=== PATIENT | female | born 1960 | race African-American/Black ===

== ENCOUNTER 2018-09-16 08:12 | Emergency (ER) | payer BC ==
[~2018-09-16] VITALS: Ht 162.6 cm; Wt 70.0 kg
[2018-09-16] MEDS ORDERED: DIAZEPAM 5 MG TABLET PO ONE (09:15)
[2018-09-16] MEDS ORDERED: KETOROLAC 60MG/2ML VIAL IM ONE (09:15)
[2018-09-16 10:06] LABS: CLARITY URINE CLEAR (CLEAR); COLOR URINE YELLOW (YELLOW); KETONES URINE NEGATIVE (NEGATIVE); LEUKOCYTE ESTERASE URINE 2+ (NEGATIVE); NITRITE URINE NEGATIVE (NEGATIVE); OCCULT BLOOD URINE NEGATIVE (NEGATIVE); PROTEIN URINE NEGATIVE (NEGATIVE); SPECIFIC GRAVITY URINE 1.023 (1.005-1.030); UROBILINOGEN URINE 0.2 E.U./dL (0.2-1.0)
[2018-09-16 10:45] VITALS: BP 110/62
== END 2018-09-16 11:32 | disposition home or self-care (01) ==
LOC: ER 08:46
DX: N39.0 Urinary tract infection, site not specified (principal); M54.5 Low back pain; I10 Essential (primary) hypertension; Z98.890 Other specified postprocedural states
CPT/HCPCS: 81003; 96372; 99283; J1885